=== PATIENT | male | born 1990 | race African-American/Black ===

== ENCOUNTER 2023-02-15 08:16 | Emergency (ER) | payer MEDICAID ==
[~2023-02-15] VITALS: Ht 175.3 cm; Wt 84.0 kg
[2023-02-15 08:35] VITALS: O2SAT 98
[2023-02-15] MEDS: KETOROLAC 60MG/2ML VIAL IM ONE (09:15)
[2023-02-15 10:28] VITALS: BP 134/77; PULSE 77; RESP 18; TEMP 97.7
== END 2023-02-15 10:29 | disposition home or self-care (01) ==
LOC: ER 08:16
DX: M25.562 Pain in left knee (principal)
CPT/HCPCS: 99283; 73560; 96372; J1885